=== PATIENT | male | born 1975 | race African-American/Black ===

== ENCOUNTER 2022-01-20 10:19 | Emergency (ER) | payer MEDICAID ==
[~2022-01-20] VITALS: Ht 188 cm; Wt 155.0 kg
[2022-01-20 10:35] VITALS: BP 154/86
[2022-01-20 13:08] LABS: BASOPHILS % 0.7 % (0.0-2.0); EOSINOPHILS % 3.8 % (0.0-5.0); HEMATOCRIT. 42.8 % (42.0-52.0); HEMOGLOBIN. 14.2 g/dL (14.0-18.0); LYMPHOCYTES % 35.4 % (20.0-50.0); MEAN CORPUSCULAR HEMOGLOBIN 32.1 pg (28.0-32.0); MEAN CORPUSCULAR VOLUME 96.4 fL (80.0-94.0); MEAN PLATELET VOLUME 7.9 fl (7.4-10.4); MONOCYTES % 10.7 % (2.0-8.0); NEUTROPHILS % 49.4 % (40.0-76.0); PLATELET 220 x1000/uL (130-400); RED BLOOD CELL COUNT 4.44 mill/uL (4.7-6.1); RED CELL DISTRIBUTION WIDTH 12.6 % (11.6-14.6)
[2022-01-20 13:10] LABS: CHLORIDE 106 mEq/L (98-107)
[2022-01-20] MEDS ORDERED: CLOT113C TP (14:06)
[2022-01-20 15:51] LABS: CLARITY URINE CLEAR (CLEAR); COLOR URINE YELLOW (YELLOW); KETONES URINE TRACE (NEGATIVE); LEUKOCYTE ESTERASE URINE NEGATIVE (NEGATIVE); NITRITE URINE NEGATIVE (NEGATIVE); OCCULT BLOOD URINE NEGATIVE (NEGATIVE); PROTEIN URINE NEGATIVE (NEGATIVE); SPECIFIC GRAVITY URINE 1.024 (1.005-1.030)
== END 2022-01-20 15:15 | disposition home or self-care (01) ==
LOC: ER 10:19
DX: M79.89 Other specified soft tissue disorders (principal); R91.8 Other nonspecific abnormal finding of lung field
CPT/HCPCS: 36415; 71045; 80053; 81003; 83880; 85025; 93005; 99285

== ENCOUNTER 2022-01-24 16:54 | Emergency (ER) | payer MEDICAID ==
[~2022-01-24] VITALS: Ht 188 cm; Wt 155.0 kg
[~2022-01-24 16:54] MED LIST: CLOT113C TP
[2022-01-24] MEDS ORDERED: TERB30CR8 TP (18:37)
[2022-01-24 18:43] VITALS: BP 153/100
== END 2022-01-24 18:49 | disposition home or self-care (01) ==
LOC: ER 16:54
DX: B35.3 Tinea pedis (principal); R21 Rash and other nonspecific skin eruption
CPT/HCPCS: 99281

== ENCOUNTER 2022-01-27 15:13 | Emergency (ER) | payer MEDICAID ==
[~2022-01-27] VITALS: Ht 188 cm; Wt 157.0 kg
[~2022-01-27 15:13] MED LIST changes: +TERB30CR8 TP
[2022-01-27 16:01] VITALS: BP 147/91
[2022-01-27 18:25] LABS: BASOPHILS % 0.6 % (0.0-2.0); EOSINOPHILS % 4.6 % (0.0-5.0); HEMATOCRIT. 40.2 % (42.0-52.0); HEMOGLOBIN. 13.4 g/dL (14.0-18.0); MEAN CORPUSCULAR HEMOGLOBIN 32.3 pg (28.0-32.0); MEAN CORPUSCULAR VOLUME 96.6 fL (80.0-94.0); MEAN PLATELET VOLUME 8.1 fl (7.4-10.4); MONOCYTES % 12.4 % (2.0-8.0); NEUTROPHILS % 47.4 % (40.0-76.0); PLATELET 231 x1000/uL (130-400); RED BLOOD CELL COUNT 4.16 mill/uL (4.7-6.1); RED CELL DISTRIBUTION WIDTH 12.6 % (11.6-14.6)
[2022-01-27 18:58] LABS: CHLORIDE 107 mEq/L (98-107)
== END 2022-01-27 19:07 | disposition home or self-care (01) ==
LOC: ER 15:13
DX: R93.89 Abnormal findings on diagnostic imaging of other specified body structures (principal); R07.89 Other chest pain
CPT/HCPCS: 36415; 71250; 80053; 83880; 85025; 93005; 99285